=== PATIENT | female | born 1955 | race Caucasian/White ===

== ENCOUNTER 2024-10-13 10:49 | Emergency (ER) | payer MEDICARE ==
[2024-10-13] MEDS ORDERED: DUONEB 0.5-3 MG/3 ml Neb IH ONE (10:59)
[2024-10-13] MEDS: DUONEB 0.5-3 MG/3 ml Neb IH ONE (11:04)
--- NOTE | 2024-10-13 11:05 | ERPHSYRPT ---
- History of Present Illness Time Seen by Provider: 10/13/24 10:50 Source: patient, family Exam Limitations: clinical condition Physician History: This is a 69-year-old white female patient who arrives by private vehicle accompanied by her [id number] secondary to shortness of breath and weakness. Patient and family are concerned that the patient might have pneumo jhonny. Patient's room air oxygen saturation level on arrival to the emergency department was 52%. Immediately, the patient was placed on oxygen and respiratory therapy consultation was made. Patient received nebulizer treatment. Patient continues to smoke tobacco cigarettes. Approximately 1 week ago, per [id number] independent, additional history, was written for antibiotics but the patient never took them. Patient denies chest pain. She has had no abdominal pain. Patient has a history of gastroesophageal reflux disease, hypertension, hyperlipidemia, osteoporosis and anxiety. Timing/Duration: day(s) (4), worse Possible Cause: occasional episodes Associated Symptoms: weakness, No anxiety, No cough, No chest pain/discomfort Home Medications: ALPRAZolam 0.25 MG [xanAX 0.25 MG] 0.25 mg PO TID 10/13/24 [History] Alendronate Sodium 70 mg [Fosamax 70 MG] 70 mg PO Q7D@0600 10/13/24 [History] Atorvastatin Calcium [Lipitor] 80 mg PO DAILY 10/13/24 [History] Isosorbide Mononitrate 30 mg [Imdur 30 MG] 30 mg PO DAILY 10/13/24 [History] Metoprolol Succinate 25 mg Xl* [Toprol-Xl 25MG Tablets] 25 mg PO DAILY 10/13/24 [History] Omeprazole 20 mg PO DAILY 10/13/24 [History] Oxycodone HCl/Acetaminophen [Oxycodone-Acetaminophn 7.5-325] 1 tab PO Q4H PRN 10/13/24 [History] Pregabalin 150 mg PO BID 10/13/24 [History] Ranolazine [Ranolazine ER] 1,000 mg PO BID 10/13/24 [History] Travel Risk - International Travel Have you traveled outside of the country in past 3 weeks: No - Emerging Infectious Disease Are you exhibiting symptoms associated with any current EIDs: Yes Symptoms: Shortness of Breath, Other (Please Comment) (This) - Review of Systems Constitutional: Weakness Eyes: No Symptoms Ears, Nose, & Throat: No Symptoms Respiratory: Dyspnea Cardiac: No Symptoms Abdominal/Gastrointestinal: No Symptoms Genitourinary Symptoms: No Symptoms Musculoskeletal: No Symptoms Skin: No Symptoms Neurological: No Symptoms Psychological: No Symptoms Endocrine: No Symptoms Hematologic/Lymphatic: No Symptoms Immunological/Allergic: No Symptoms All Other Systems: Reviewed and Negative - Past Medical History Pertinent Past Medical History: Yes - Nursing Vital Signs Nursing Vital Signs: Initial Vital Signs Temperature 100.9 F 10/13/24 10:54 Pulse Rate 74 10/13/24 10:54 Respiratory Rate 22 10/13/24 10:54 Blood Pressure 124/82 10/13/24 10:54 O2 Sat by Pulse Oximetry 52 L 10/13/24 10:54 Pain Scale Pain Intensity 0 - Physical Exam General Appearance: mild distress (Mild to moderate distress), alert, anxiety, thin Eye Exam: PERRL/EOMI, eyes nml inspection Ears, Nose, Throat Exam: hearing grossly normal, normal ENT inspection, normal pharynx Neck Exam: normal inspection, non-tender, supple, full range of motion Respiratory Exam: respiratory distress, diminished breath sounds (Bilateral and diffuse), No chest tenderness Cardiovascular/Chest Exam: normal heart sounds, regular rate/rhythm Abdominal/Gastrointestinal Exam: soft, normal bowel sounds, No tenderness Rectal Exam: not done Extremity Exam: non-tender, normal range of motion, normal inspection Neurologic Exam: alert, oriented x 3, cooperative, desk sergeant II-XII nml as tested, nml cerebellar function, nml station & gait, sensation nml Skin Exam: normal color, warm, dry Lymphatic Exam: No adenopathy SpO2 Interpretation: hypoxic O2 Delivery: Room Air - Course Nursing assessment & vital signs reviewed: Yes Ordered Tests: Active Orders 24 hr Category Date Time Status Nondestructive Tester STAT Care 10/13/24 11:06 Active EKG-ER Only STAT Care 10/13/24 11:05 Active IV Insertion STAT Care 10/13/24 11:05 Active Pulse Oximetry (ED) STAT Care 10/13/24 11:05 Active CHEST 1 VIEW (PORTABLE) Stat Exams 10/13/24 11:06 Completed ABG [ARTERIAL BLOOD GASES] Stat Lab 10/13/24 11:00 Results BLOOD CULTURE Stat Lab 10/13/24 11:35 Received CBC W DIFF Stat Lab 10/13/24 11:25 Completed Lactic Acid Stat Lab 10/13/24 11:05 Completed MAGNESIUM Stat Lab 10/13/24 11:25 Completed NT PRO BNPII Stat Lab 10/13/24 11:25 Completed PROTIME WITH INR Stat Lab 10/13/24 11:25 Completed TROPONIN Q4H Lab 10/13/24 11:25 Completed TROPONIN Q4H Lab 10/13/24 15:15 Ordered TROPONIN Q4H Lab 10/13/24 19:15 Ordered Respiratory Therapy Assessment DAILY RT 10/13/24 11:08 Active Medication Summary Discontinued Medications Generic Name Dose Route Start Last Admin Trade Name Freq PRN Reason Stop Dose Admin Albuterol/Ipratropium 3 ml 10/13/24 10:56 10/13/24 11:04 Ipratropium/Albuterol Sulfate 3 Ml Ampul.Neb IH 10/13/24 10:57 3 ml STAT ONE Administration Albuterol/Ipratropium Confirm 10/13/24 10:59 Ipratropium/Albuterol Sulfate 3 Ml Ampul.Neb Administered 10/13/24 11:00 Dose 3 ml IH .STK-MED ONE Methylprednisolone Sodium 0 mg 10/13/24 11:05 10/13/24 11:23 Succinate 125 mg/ Sterile IV 10/13/24 11:06 125 mg Water 2 ml STAT ONE Administration Furosemide 40 mg 10/13/24 12:28 10/13/24 12:48 Furosemide 40 Mg/4 Ml Vial IV 10/13/24 12:29 40 mg STAT ONE Administration Furosemide Confirm 10/13/24 12:36 Furosemide 40 Mg/4 Ml Vial Administered 10/13/24 12:37 Dose 40 mg .ROUTE .STK-MED ONE Ceftriaxone Sodium 1 gm in 100 mls @ 200 mls/hr 10/13/24 11:41 10/13/24 12:39 Rocephin 1 Gm / 100 Ml Nacl IV 10/13/24 12:10 Infused STAT ONE Infusion Ceftriaxone Sodium Confirm 10/13/24 11:46 Rocephin 1 Gm / 100 Ml Nacl Administered 10/13/24 11:47 Dose 1 gm in 100 mls @ ud IV .STK-MED ONE Methylprednisolone Sodium Succinate Confirm 10/13/24 11:20 Methylprednis Sod Succ 125 Mg/2 Ml Vial Administered 10/13/24 11:21 Dose 125 mg .ROUTE .[employer] ONE Sterile Water Confirm 10/13/24 11:20 Water For Injection,Sterile 10 Ml Vial Administered 10/13/24 11:21 Dose 10 ml IJ .[employer]-MED ONE Lab/Rad Data: Laboratory Result Diagrams 10/13/24 11:25 Laboratory Results 10/13/24 10/13/24 10/13/24 Range/Units 11:35 11:25 11:25 WBC (3.98-10.04) x10^3/uL RBC (3.93-5.22) x10^6/uL Hgb (11.2-15.7) g/dL Hct (34.1-44.9) % MCV (79.4-94.8) fL MCH (25.6-32.2) pg MCHC (32.2-35.5) g/dL RDW (11.7-14.4) % Plt Count (182-369) x10^3/uL MPV (9.4-12.3) fL Gran % (34.0-71.1) % Immature Gran % (Auto) (0.001-0.429) % Nucleat RBC Rel Count (0.00-0.2) % Eos # (Auto) (0.04-0.36) x10^3/uL Immature Gran # (Auto) (0.001-0.031) x10^3u/L Absolute Lymphs (auto) (1.18-3.74) x10^3/uL Absolute Monos (auto) (0.24-0.86) x10^3/uL Absolute Nucleated RBC (0.00-0.012) x10^3u/L Lymphocytes % (19.3-51.7) % Monocytes % (4.7-12.5) % Eosinophils % (0.7-5.8) % Basophils % (0.1-1.2) % Absolute Granulocytes (1.56-6.13) x10^3/uL Basophils # (0.01-0.08) x10^3/uL PT 11.4 (9.4-12.5) SECONDS INR 1.05 (0.8-3.0) Puncture Site pCO2 (35-45) mmHg pO2 (75-100) mmHg Base Excess (-2.0-2.0) O2 Saturation (94-100) g/dF ABG pH (7.35-7.45) ABG HCO3 (22-28) ABG O2 Sat (Measured) (95-100) % Joe Test A-a Gradient a/A Ratio Hemoglobin Carboxyhemoglobin (0.0-6.9) % THgb Methemoglobin (1.4-1.5) % Potassium (3.5-5.1) Temperature C POC O2 Flow Rate % Lactic Acid (0.4-2.0) Magnesium (1.6-2.3) mg/dL Troponin I 0.333 H* (0.000-0.033) ng/mL NT-Pro-B Natriuret Pep (<300) pg/mL Influenza Type A Ag POSITIVE A (NEGATIVE) Influenza Type B Ag NEGATIVE (NEGATIVE) RSV (PCR) NEGATIVE (NEGATIVE) SARS-CoV-2 (PCR) NEGATIVE (NEGATIVE) 10/13/24 10/13/24 10/13/24 Range/Units 11:25 11:25 11:05 WBC 12.9 H (3.98-10.04) x10^3/uL RBC 4.79 (3.93-5.22) x10^6/uL Hgb 12.4 (11.2-15.7) g/dL Hct 38.3 (34.1-44.9) % MCV 80.0 (79.4-94.8) fL MCH 25.9 (25.6-32.2) pg MCHC 32.4 (32.2-35.5) g/dL RDW 19.9 H (11.7-14.4) % Plt Count 189 (182-369) x10^3/uL MPV 10.8 (9.4-12.3) fL Gran % 76.4 H (34.0-71.1) % Immature Gran % (Auto) 0.5 H (0.001-0.429) % Nucleat RBC Rel Count 0.2 (0.00-0.2) % Eos # (Auto) 0.02 L (0.04-0.36) x10^3/uL Immature Gran # (Auto) 0.06 H (0.001-0.031) x10^3u/L Absolute Lymphs (auto) 1.71 (1.18-3.74) x10^3/uL Absolute Monos (auto) 1.23 H (0.24-0.86) x10^3/uL Absolute Nucleated RBC 0.03 H (0.00-0.012) x10^3u/L Lymphocytes % 13.2 L (19.3-51.7) % Monocytes % 9.5 (4.7-12.5) % Eosinophils % 0.2 L (0.7-5.8) % Basophils % 0.2 (0.1-1.2) % Absolute Granulocytes 9.87 H (1.56-6.13) x10^3/uL Basophils # 0.03 (0.01-0.08) x10^3/uL PT (9.4-12.5) SECONDS INR (0.8-3.0) Puncture Site pCO2 (35-45) mmHg pO2 (75-100) mmHg Base Excess (-2.0-2.0) O2 Saturation (94-100) g/dF ABG pH (7.35-7.45) ABG HCO3 (22-28) ABG O2 Sat (Measured) (95-100) % Joe Test A-a Gradient a/A Ratio Hemoglobin Carboxyhemoglobin (0.0-6.9) % THgb Methemoglobin (1.4-1.5) % Potassium (3.5-5.1) Temperature C POC O2 Flow Rate % Lactic Acid 1.6 (0.4-2.0) Magnesium 1.9 (1.6-2.3) mg/dL Troponin I (0.000-0.033) ng/mL NT-Pro-B Natriuret Pep 5580 (<300) pg/mL Influenza Type A Ag (NEGATIVE) Influenza Type B Ag (NEGATIVE) RSV (PCR) (NEGATIVE) SARS-CoV-2 (PCR) (NEGATIVE) 10/13/24 Range/Units 11:00 WBC (3.98-10.04) x10^3/uL RBC (3.93-5.22) x10^6/uL Hgb (11.2-15.7) g/dL Hct (34.1-44.9) % MCV (79.4-94.8) fL MCH (25.6-32.2) pg MCHC (32.2-35.5) g/dL RDW (11.7-14.4) % Plt Count (182-369) x10^3/uL MPV (9.4-12.3) fL Gran % (34.0-71.1) % Immature Gran % (Auto) (0.001-0.429) % Nucleat RBC Rel Count (0.00-0.2) % Eos # (Auto) (0.04-0.36) x10^3/uL Immature Gran # (Auto) (0.001-0.031) x10^3u/L Absolute Lymphs (auto) (1.18-3.74) x10^3/uL Absolute Monos (auto) (0.24-0.86) x10^3/uL Absolute Nucleated RBC (0.00-0.012) x10^3u/L Lymphocytes % (19.3-51.7) % Monocytes % (4.7-12.5) % Eosinophils % (0.7-5.8) % Basophils % (0.1-1.2) % Absolute Granulocytes (1.56-6.13) x10^3/uL Basophils # (0.01-0.08) x10^3/uL PT (9.4-12.5) SECONDS INR (0.8-3.0) Puncture Site Pending pCO2 42 (35-45) mmHg pO2 69 L (75-100) mmHg Base Excess 3.9 H (-2.0-2.0) O2 Saturation 91.3 L (94-100) g/dF ABG pH 7.44 (7.35-7.45) ABG HCO3 28.5 H (22-28) ABG O2 Sat (Measured) 93.1 L (95-100) % Joe Test Pending A-a Gradient 592 a/A Ratio 0.10 Hemoglobin 13.1 Carboxyhemoglobin 1.5 (0.0-6.9) % THgb Methemoglobin 0.4 L (1.4-1.5) % Potassium 3.5 (3.5-5.1) Temperature 37.0 C POC O2 Flow Rate 100 % Lactic Acid (0.4-2.0) Magnesium (1.6-2.3) mg/dL Troponin I (0.000-0.033) ng/mL NT-Pro-B Natriuret Pep (<300) pg/mL Influenza Type A Ag (NEGATIVE) Influenza Type B Ag (NEGATIVE) RSV (PCR) (NEGATIVE) SARS-CoV-2 (PCR) (NEGATIVE) - Progress Progress: improved, re-examined Air Movement: poor Progress Note: 10/13/24 11:32 I medical decision making and the assignment of moderate to high complexity of this patient's medical issue today is based on review of the patient's past medical history, review of the patient's medication list, reviewed patient drug allergy list, history present illness and physical findings on examination. The workup in this patient includes placement of an intravenous line, CBC, CMP, magnesium level, BNP level, troponin, twelve-lead EKG, viral swabs, monotest, chest x-ray and respiratory therapy consultation. Differential diagnosis includes but is not limited to pneumonia, CHF exacerbation, COPD exacerbation, upper respiratory infection, myocardial infarction, arrhythmia 10/13/24 11:40 The chest x-ray was interpreted by the radiologist and I reviewed the imp ression. The impression states mild left base infiltrate/atelectasis without consolidation or large effusion. There are COPD changes present. 10/13/24 12:54 I interpreted the patient's laboratory data results. Based on the laboratory data results, the patient has an elevated BNP, and elevated troponin level, leukocytosis. I spoke with Dr. Fonseca, the emergency department physician on at [facility] in [facility]. I reviewed the patient complaint, physical findings, workup and the results of the workup as well as patient's response to our intervention. He accepts the patient in transfer Blood Culture(s) Obtained: Yes Antibiotics given: Yes Counseled pt/family regarding: lab results, diagnosis, rad results Medical Desision Making - Discussion of managment Reviewed:: Test results, Need for additional workup - Diagnostic Testing Diagnostic test were ordered, analyzed, and reviewed by me: Yes Radiological Interpretation: Reviewed by me, Teleradiologist Report - Risk of complications The pt has a high risk of morbidity or mortality based on: Decision regarding hospitilization or escalation of hosp level of care - Departure Departure Disposition: Observation Clinical Impression: Hypoxia, Fever, Left pulmonary infiltrate on CXR, Shortness of breath, Pleural effusion, Influenza A H1N1 infection Condition: Fair Critical Care Time: Yes Critical Care Time(excluding separately billable procedures): Critical 30-74 mins (45 minutes) Referrals: CAITLYN LANDAVERDE MD [Primary Care Provider] - Follow up/PCP as directed
[2024-10-13 11:09] VITALS: TEMP 100.9
[2024-10-13 11:13] LABS: A-aADO2 592; ABG HEMOGLOBIN 13.1; ABG POTASSIUM 3.5 (3.5-5.1); ARTERIAL BLD GAS O2 SATURATION 93.1 % (95-100); ARTERIAL BLOOD GAS BASE EXCESS 3.9 (-2.0-2.0); ARTERIAL BLOOD GAS FIO2 100 %; ARTERIAL BLOOD GAS PCO2 42 mmHg (35-45); ARTERIAL BLOOD GAS PO2 69 mmHg (75-100); ARTERIAL BLOOD GAS pH 7.44 (7.35-7.45); CARBOXYHEMOGLOBIN 1.5 % THgb (0.0-6.9); HCO3- 28.5 (22-28); HGB O2 SAT 91.3 g/dF (94-100); Methhemoglobin 0.4 % (1.4-1.5)
[2024-10-13] MEDS ORDERED: Sterile H2O 10 ml IJ ONE (11:20)
[2024-10-13] MEDS ORDERED: solu-MEDROL ONE (11:20)
[2024-10-13] MEDS: solu-MEDROL 125 MG, Sterile H2O 10 ml 2 ML IV ONE (11:23)
--- NOTE | 2024-10-13 11:34 | XRAY ---
Indication: Cough. Short of breath. Comparison: None Portable chest demonstrates mild left base infiltrate/atelectasis without consolidation/large effusion. Remaining lungs demonstrate COPD. Heart not enlarged with left pacemaker. Bony thorax intact with osteopenia, degenerative changes, and T11/T12 vertebroplasty.
[2024-10-13] MEDS ORDERED: ROCEPHIN 1 GM / 100 ML NaCl 1 GM/100 ML IVPB IV ONE (11:46)
[2024-10-13] MEDS: ROCEPHIN 1 GM / 100 ML NaCl 1 GM/100 ML IVPB IV ONE (11:48)
[2024-10-13 11:56] LABS: INR 1.05 (0.8-3.0); PROTIME 11.4 SECONDS (9.4-12.5)
[2024-10-13 12:06] LABS: MAGNESIUM 1.9 mg/dL (1.6-2.3)
[2024-10-13 12:11] LABS: Absolute Neutrophil Ct (ANC) 9.87 x10^3/uL (1.56-6.13); BASOPHIL % 0.2 % (0.1-1.2); Basophil (Absolute #) 0.03 x10^3/uL (0.01-0.08); Eosinophil % 0.2 % (0.7-5.8); Eosinophil (Absolute #) 0.02 x10^3/uL (0.04-0.36); Hematocrit 38.3 % (34.1-44.9); Hemoglobin 12.4 g/dL (11.2-15.7); IMMATURE GRAN # 0.06 x10^3u/L (0.001-0.031); IMMATURE GRAN % 0.5 % (0.001-0.429); Lymphocyte (Absolute #) 1.71 x10^3/uL (1.18-3.74); Lymphocytes % 13.2 % (19.3-51.7); Mean Corpuscular Hemoglobin 25.9 pg (25.6-32.2); Mean Corpuscular Hgb Concent. 32.4 g/dL (32.2-35.5); Mean Platelet Volume 10.8 fL (9.4-12.3); Monocyte (Absolute #) 1.23 x10^3/uL (0.24-0.86); Monocytes % 9.5 % (4.7-12.5); NUCLEATED RBC # 0.03 x10^3u/L (0.00-0.012); NUCLEATED RBC % 0.2 % (0.00-0.2); Neutrophil % 76.4 % (34.0-71.1); Platelet Count 189 x10^3/uL (182-369); Red Blood Count 4.79 x10^6/uL (3.93-5.22); Red Cell Distribution Width 19.9 % (11.7-14.4); White Blood Count 12.9 x10^3/uL (3.98-10.04)
[2024-10-13 12:21] LABS: INFLUENZA B NEGATIVE (NEGATIVE); RESPIRATORY SYNCTIAL VIRUS NEGATIVE (NEGATIVE); SARS-CoV-2 Xpert Express NEGATIVE (NEGATIVE)
[2024-10-13 12:27] LABS: INFLUENZA A POSITIVE (NEGATIVE)
[2024-10-13] MEDS ORDERED: Lasix 40 MG/4 ML ONE (12:36)
[2024-10-13] MEDS: Lasix 40 MG/4 ML IV ONE (12:48)
[2024-10-13 14:08] VITALS: BP 121/56; PULSE 69; RESP 17; O2SAT 89
[2024-10-14 06:11] LABS: ABG SITE RIGHT RADIAL; ALLEN TEST OK? YES
== END 2024-10-13 14:20 | disposition short-term general hospital (02) ==
LOC: ED 10:49
DX: J10.1 Influenza due to other identified influenza virus with other respiratory manifestations (principal); R09.02 Hypoxemia; R50.9 Fever, unspecified; R91.8 Other nonspecific abnormal finding of lung field; R06.02 Shortness of breath; J91.8 Pleural effusion in other conditions classified elsewhere; R79.89 Other specified abnormal findings of blood chemistry; R77.8 Other specified abnormalities of plasma proteins; R53.1 Weakness; I10 Essential (primary) hypertension; E78.5 Hyperlipidemia, unspecified; Z79.891 Long term (current) use of opiate analgesic; Z79.899 Other long term (current) drug therapy
CPT/HCPCS: 0241U; 36415; 36600; 71045; 82375; 82803; 83605; 83735; 83880; 84484; 85025; 85610; 87040; 93005; 93041; 94640; 94760; 96365; 96374; 96375; 99291; 99285; J0696; J1940; J2919; A9270-GY